=== PATIENT | female | born 2000 | race Native Hawaiian/Other Pacific Islander ===

== ENCOUNTER 2023-02-13 09:08 | Outpatient (CLI) | payer BC ==
[2023-02-13 10:18] LABS: PLATELET COUNT 338 K/uL (152-353)
[2023-02-13 10:30] LABS: POTASSIUM 4.2 mmol/L (3.6-5.2)
[2023-02-13 10:33] LABS: PARTIAL THROMBOPLASTIN TIME 31.2 SECONDS (23.9-36.7)
== END 2023-02-13 20:25 | disposition home or self-care (01) ==
LOC: LABW 09:08
PROVIDERS: ATTEND Orthopaedic Surgery
DX: S92.355D Nondisplaced fracture of fifth metatarsal bone, left foot, subsequent encounter for fracture with routine healing (principal); Y92.89 Other specified places as the place of occurrence of the external cause
CPT/HCPCS: 80053; 81025; 85027; 85610; 85730; 93005